=== PATIENT | male | born 1990 | race Caucasian/White ===

== ENCOUNTER 2021-10-09 08:29 | Observation (INO) ==
[2021-10-09] MEDS ORDERED: XYLOCAINE 1%/SOD BICARB 20 ML VIAL INFIL ONE (08:43)
[2021-10-09] MEDS ORDERED: MoRPHine SULFATE 10 MG/ML CARP/VIAL IM STA (08:43)
[2021-10-09] MEDS ORDERED: BUPIVACAINE 0.5 % 5 MG/1 ML MPF 30ML VIAL INFIL ONE (08:43)
[2021-10-09] MEDS ORDERED: DIPHTHERIA/TETANUS/PERTUSSIS 0.5 ML SYR/VIAL IM ONE (08:43)
--- NOTE | 2021-10-09 09:00 | Emergency Department Note ---
History of Present Illness General Chief complaint: Finger Pain Stated complaint: FINGER INJURY Time Seen by Provider: 10/09/21 08:36 Source: patient Mode of arrival: ambulatory Limitations: no limitations History of Present Illness Maximum Pain Intensity: 6 This patient is a 31-year-old male who presents to the emergency department for evaluation of an injury to his right second finger. Patient reports that he was at work this morning and smashed his finger in a pneumatic press. He reports a 6/10 pain in the finger. He reports a laceration at the site. He is unsure when his last tetanus vaccine was. He does report decreased sensation of the fingertip. Home Medications Medication Instructions Recorded Confirmed Type amoxicillin 500 mg capsule 500 mg PO TID 10/09/21 10/09/21 History ibuprofen 800 mg tablet 800 mg PO Q8H PRN 10/09/21 10/09/21 History acetaminophen 500 mg tablet 1,000 mg PO Q8H 30 Days #180 tab 10/10/21 Rx (Tylenol Extra Strength) oxycodone 5 mg tablet 5 - 10 mg PO Q4H PRN #20 tab 10/10/21 Rx Allergies Allergy/AdvReac Type Severity Reaction Status Date / Time Sulfa (Sulfonamide Allergy Unknown Unknown Verified 10/09/21 11:27 Antibiotics) Past Med/Surg History Medical History No significant past medical history Social History Smoking Status: Current every day smoker Tobacco Type: E-cigarettes / Vaping Hx Alcohol Use: Yes Hx Substance Use: No Preferred Language: Chinese Communication Ability: Effective Carbonation Tester Required: No Beliefs That Will Affect Care: None Feels Safe at Home: Yes Assistive Devices: None Review of Systems A total of 10 systems reviewed and were otherwise negative Physical Exam Vital Signs Vital Signs - 24 hr 10/09/21 15:16 10/09/21 15:25 Temperature 36.1 C L Temperature Source Temporal Artery Scan Pulse Rate [Apical] 82 71 Pulse Rhythm [Apical] Regular Regular Pulse Strength [Apical] Normal Normal Respiratory Rate 16 14 Respiratory Effort / Characteristics Non-Labored Spontaneous Non-Labored Spontaneous Respiratory Depth Normal Normal Respiratory Pattern Regular Regular Blood Pressure [Left Arm] 118/79 121/70 Blood Pressure Mean [Left Arm] 92 87 Blood Pressure Position [Left Arm] Lying Lying Pulse Oximetry 100 98 Oxygen Delivery Method Oxymask Oxymask Oxygen Flow Rate 6 6 VITALS: Vitals are noted on the nurse's note and reviewed by myself. GENERAL: This is a 31-year-old male, in no acute distress but uncomfortable appearing. SKIN: There is a stellate, macerated laceration to the palmar aspect of the right second finger over the area of the middle phalanx/DIP. No significant active bleeding. MUSCULOSKELETAL: Decreased flexion of the right second finger at the DIP. NEURO: Patient was alert and oriented to person place and time. Sensation i ntact over the distal right second finger. Procedures Free Text Procedures Digital block: The base of the right second finger was cleansed with betadine. 4 mLs of a 1:1 solution of buffered lidocaine and bupivacaine was injected into the palmar aspect of the finger at the flexor crease of the base of the finger. Patient tolerated this well. Course Administered Medications Discontinued Medications Acetaminophen (Acetaminophen 500 Mg Tab) 1,000 mg PO Q8 DEIRDRE Stop: 11/08/21 21:59 Last Admin: 10/10/21 13:07 Dose: 1,000 mg Documented by: [id number] Admin: 10/10/21 04:58 Dose: 1,000 mg Documented by: [id number] Admin: 10/10/21 00:18 Dose: Not Given Documented by: [id number] Bupivacaine HCl (Bupivacaine 0.5 % 5 Mg/1 Ml Mpf 30ml Vial) 30 ml INFIL NOW ONE Stop: 10/09/21 08:44 Last Admin: 10/09/21 09:09 Dose: Not Given Documented by: [id number] Bupivacaine HCl (Bupivacaine 0.5 % 5 Mg/1 Ml Mpf 30ml Vial) Confirm Administered Dose 30 ml .ROUTE .STK-MED ONE Stop: 10/09/21 11:17 Last Admin: 10/09/21 15:00 Dose: 6 ml Documented by: [id number] Cefazolin Sodium (Cefazolin 330 Mg/Ml 1 Gm Vial) Confirm Administered Dose 990 mg .ROUTE .STK-MED ONE Stop: 10/09/21 11:17 Last Admin: 10/09/21 11:20 Dose: Not Given Documented by: [id number] Diphtheria/Pertussis/Tetanus Vacc (Diphtheria/Tetanus/Pertussis 0.5 Ml Syr/Vial) 0.5 ml IM .ONCE ONE Stop: 10/09/21 08:44 Last Admin: 10/09/21 09:10 Dose: 0.5 ml Documented by: [id number] Docusate Sodium (Docusate Sodium 100 Mg Cap) 100 mg PO BID DEIRDRE Stop: 11/08/21 20:59 Last Admin: 10/10/21 07:11 Dose: 100 mg Documented by: [id number] Admin: 10/09/21 20:43 Dose: Not Given Documented by: [id number] Hydromorphone HCl (Hydromorphone Inj 0.5 Mg/0.5 Ml Syr) 0.5 mg IV Q4H PRN PRN Reason: Pain or Pre PT Stop: 10/23/21 16:27 Last Admin: 10/10/21 14:59 Dose: 0.5 mg Documented by: [id number] Admin: 10/10/21 11:39 Dose: 0.5 mg Documented by: [id number] Cefazolin Sodium (Ancef 2000mg) 2,000 mg in 15 mls @ 3.75 mls/min IV NOW STA Stop: 10/09/21 09:56 Last Admin: 10/09/21 10:58 Dose: 3.75 mls/min Documented by: [id number] Lactated Ringer's (Lr) 1,000 mls @ 80 mls/hr IV .[id number] DEIRDRE Stop: 11/08/21 11:29 Last Infusion: 10/09/21 12:38 Dose: 0 mls/hr Documented by: [id number] Admin: 10/09/21 12:11 Dose: 80 mls/hr Documented by: [id number] Sodium Chloride (Nss 1000ml) 1,000 mls @ 100 mls/hr IV .Q10H DEIRDRE Stop: 10/10/21 06:00 Last Infusion: 10/10/21 06:56 Dose: 0 mls/hr Documented by: [id number] Admin: 10/10/21 01:26 Dose: 100 mls/hr Documented by: [id number] Infusion: 10/10/21 01:26 Dose: 100 mls/hr Documented by: [id number] Admin: 10/09/21 16:30 Dose: 100 mls/hr Documented by: [id number] Cefazolin Sodium (Ancef 2000mg) 2,000 mg in 15 mls @ 3.75 mls/min IV Q8H DEIRDRE Stop: 10/10/21 17:59 Last Admin: 10/10/21 09:09 Dose: 3.75 mls/min Documented by: [id number] Admin: 10/10/21 01:24 Dose: 3.75 mls/min Documented by: [id number] Admin: 10/09/21 17:50 Dose: 3.75 mls/min Documented by: [id number] Ketorolac Tromethamine (Ketorolac 30 Mg/Ml Vial) 30 mg IV Q6H PRN PRN Reason: Pain Stop: 10/10/21 15:32 Last Admin: 10/10/21 07:11 Dose: 30 mg Documented by: [id number] Admin: 10/09/21 17:37 Dose: 30 mg Documented by: [id number] Lidocaine HCl (Xylocaine 1%/Sod Bicarb 20 Ml Vial) 20 ml INFIL NOW ONE Stop: 10/09/21 08:44 Last Admin: 10/09/21 09:09 Dose: Not Given Documented by: [id number] Lidocaine HCl (Lidocaine 1% Local 20 Ml Vial) Confirm Administered Dose 20 ml .ROUTE .STK-MED ONE Stop: 10/09/21 11:17 Last Admin: 10/09/21 15:00 Dose: 6 ml Documented by: [id number] Morphine Sulfate (Morphine Sulfate 10 Mg/Ml Carp/Vial) 6 mg IM NOW STA Stop: 10/09/21 08:44 Last Admin: 10/09/21 09:09 Dose: Not Given Documented by: [id number] Morphine Sulfate (Morphine Sulfate 2 Mg/Ml Carp) Confirm Administered Dose 2 mg .ROUTE .STK-MED ONE Stop: 10/09/21 09:06 Last Admin: 10/09/21 09:10 Dose: 2 mg Documented by: [id number] Morphine Sulfate (Morphine Sulfate 4 Mg/Ml 1 Ml Carp\Vial) Confirm Administered Dose 4 mg .ROUTE .STK-MED ONE Stop: 10/09/21 09:07 Last Admin: 10/09/21 09:10 Dose: 4 mg Documented by: [id number] Multivitamins (Multivitamin Tab) 1 tab PO QAM DEIRDRE Stop: 11/09/21 08:59 Last Admin: 10/10/21 07:11 Dose: 1 tab Documented by: [id number] Ondansetron HCl (Ondansetron Inj 2 Mg/Ml 2 Ml Vial) 4 mg IV ONCE PRN PRN Reason: PACU Use Only-Nausea/Vomiting Stop: 10/09/21 20:06 Last Admin: 10/09/21 15:40 Dose: 4 mg Documented by: [id number] Oxycodone HCl (Oxycodone Hcl Ir 5 Mg Tab (Immediate Release)) 5 - 10 mg PO Q4H PRN PRN Reason: Pain or Pre PT Stop: 10/23/21 16:27 Last Admin: 10/10/21 13:05 Dose: 10 mg Documented by: [id number] Admin: 10/10/21 09:09 Dose: 10 mg Documented by: [id number] Admin: 10/10/21 04:58 Dose: 10 mg Documented by: [id number] Admin: 10/09/21 20:42 Dose: 10 mg Documented by: [id number] Sennosides (Senna 8.6 Mg Tab) 17.2 mg PO HS DEIRDRE Stop: 11/08/21 20:59 Last Admin: 10/09/21 20:43 Dose: Not Given Documented by: [id number] Medical Decision Making Differential Diagnosis Differential diagnosis includes laceration, open fracture, soft tissue injury, among others. Home Medications Current Medication List: was personally reviewed by me Laboratory Data Lab Results 10/09/21 Range/Units 10:50 SARS-CoV-2, RNA, NAAT NEGATIVE (NEGATIVE) Imaging Data Attestation: I personally reviewed and interpreted this imaging study as follows: Radiologist's Impression: Finger X-Ray 10/09/21 08:43 XR finger(s) RT min 2V CLINICAL HISTORY: Right second finger injury. COMPARISON: None FINDINGS: Right second finger soft tissue swelling is noted. Note is made of an acute mildly displaced oblique fracture within the distal aspect of the middle phalanx of the right second finger with intra-articular extension. Fracture is distracted 1.6 mm. A few tiny bone fragments are present. There is apparent soft tissue gas within the right second finger. IMPRESSION: Acute oblique mildly displaced comminuted fracture of the distal aspect of the middle phalanx of the right second finger with intra-articular extension. Apparent soft tissue gas raises the possibility of an open fracture. ACT 112: Negative or not required by law. Electronically signed by: Greg Soriano M.D. 10/09/2021 9:08 AM MDM Narrative This patient is a 31-year-old male who presents to the emergency department for evaluation of an open right second finger fracture. Patient was given a tetanus booster and IV Ancef. Digital block was performed to allow better examination of the finger. Orthopedics was consulted and did elect to take the patient to the OR for further management. Impression & Plan Open fracture of finger of right hand Discharge Plan Visit Data Chief Complaint: Finger Pain Stated Complaint: FINGER INJURY ED Provider: Boni Gonzalez ED Midlevel Provider: Francie Nguyen Discharge Problem: Open fracture of finger of right hand Patient Disposition: Admitted As Inpatient Discharge Instructions Interventions: ED Discharge Assessment Last Done: 10/09/21 11:58
[2021-10-09] MEDS ORDERED: MoRPHine SULFATE 2 MG/ML CARP ONE (09:05)
[2021-10-09] MEDS ORDERED: MoRPHine SULFATE 4 MG/ML 1 ML CARP\\VIAL ONE (09:06)
--- NOTE | 2021-10-09 09:09 | XRay Report ---
XR finger(s) RT min 2V CLINICAL HISTORY: Right second finger injury. COMPARISON: None FINDINGS: Right second finger soft tissue swelling is noted. Note is made of an acute mildly displac ed oblique fracture within the distal aspect of the middle phalanx of the right second finger with in tra-articular extension. Fracture is distracted 1.6 mm. A few tiny bone fragments are present. There is apparent soft tissue gas within the right second finger. IMPRESSION: Acute oblique mildly displaced comminuted fracture of the distal aspect of the middle pha lanx of the right second finger with intra-articular extension. Apparent soft tissue gas raises the p ossibility of an open fracture. ACT 112: Negative or not required by law. Electronically signed by: Greg Soriano M.D. 10/09/2021 9:08 AM
[2021-10-09] MEDS ORDERED: ceFAZolin 2000MG 2,000 MG/15 ML SYR IV STA (09:53)
--- NOTE | 2021-10-09 10:54 | History & Physical Report ---
Date of Service October 09, 2021 Assessment & Plan (1) Open fracture of finger of right hand: Plan: Case discussed with Dr Rodriguez. Patient will require surgical intervention for wash out and irrigation with percutaneous pinning right pointer finger. 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 It happened at approximately 8:30 this morning. He was evaluated by the ED where they did x rays that showed an open, traumatic, intra- articular fracture of the 2nd digits middle phalanx. The patient denies any previous injuries or fractures to his hand or finger. ED provided him with local anesthetic using lidocaine and did copious irrigation with saline and betadine. Pt is not on any anti-coagulants. He last ate at dinner yesterday. Allergies Allergy/AdvReac Type Severity Reaction Status Date / Time Sulfa (Sulfonamide Allergy Unknown Unverified 10/09/21 09:33 Antibiotics) Home Medications Medication Instructions Recorded Confirmed Type amoxicillin 500 mg capsule 500 mg PO TID 10/09/21 10/09/21 History ibuprofen 800 mg tablet 800 mg PO Q8H PRN 10/09/21 10/09/21 History Past Med/Surg History Medical History No significant past medical history Social History Smoking Status: Current every day smoker Tobacco Type: E-cigarettes / Vaping Feels Safe at Home: Yes Review of Systems Review of Systems: Pt denies fever, chills, CP, SOB, coughing, wheezing, DIEGO Pt says he had covid 2 months ago but has since recovered and is having no symptoms Physical Exam Constitutional: Pt laying in bed AA&O x 3, NAD, Calm and cooperative during exam Eyes: PERRL, conjunctivae normal, anicteric sclerae Respiratory: normal respiratory effort, lungs clear to auscultation normal respiratory effort Cardiovascular: Rate/Rhythm: regular rate and regular rhythm Heart Sounds: normal S1 and normal S2 Musculoskeletal: Right Hand: open fracture of distal 2nd phalanx right hand. Skin warm and pink. Flexion and extension of DIP and PIP intact. Pt limited with Flexion and Extension at the PIP and MCP. Pt numb due to finger block provided by ED provider. Refer to Dr Jennifer harvey for full examination Results & Data Results & Data ([facility]) Vital Signs (Past 12 Hours) Vital Signs Temp Pulse Resp BP Pulse Ox 10/09/21 08:32 36.6 C 78 20 156/103 H 97 Diagnostic Findings XR finger(s) RT min 2V CLINICAL HISTORY: Right second finger injury. COMPARISON: None FINDINGS: Right second finger soft tissue swelling is noted. Note is made of an acute mildly displaced oblique fracture within the distal aspect of the middle phalanx of the right second finger with intra-articular extension. Fracture is distracted 1.6 mm. A few tiny bone fragments are present. There is apparent soft tissue gas within the right second finger. IMPRESSION: Acute oblique mildly displaced comminuted fracture of the distal aspect of the middle phalanx of the right second finger with intra-articular extension. Apparent soft tissue gas raises the possibility of an open fracture.
--- NOTE | 2021-10-09 11:02 | Orthopedic Consultation ---
Date of Consultation October 09, 2021 Assessment & Plan (1) Open fracture of finger of right hand: Patient seen in conjunction with Sofia Sparrow. For further details refer to her dictation. She and I saw and evaluated together. I am in agreement the plan. Vincenzo is otherwise healthy. He injured his right index finger at about 8:30 AM and a press at work. There is no prior history of hand injuries. The examination reveals a wound on the radial side of the digit. It begins just lateral to the midline dorsally and extends around the radial side of the digit to about the mid axis of the finger. There is a large flap distally. The laceration with evulsion is about 3 perhaps 3-1/2 cm in length. There may be some volar tissue missing. Opening this up reveals a channel that goes directly down to the distal interphalangeal joint. The flexor tendon appears visible and looks to be intact. He has intact IP joint extension without lag and he can actively flex the DIP joint. He has difficulty flexing at the PIP joint but can do so in all other fingers including the left index finger. There is no tenderness over the proximal middle phalanx. He has been anesthetized so I cannot assess his sensation but he does have capillary refill intact less than 2 seconds at the tip of the finger. Radiographs show a fracture involving the ulnar aspect of the distal portion of the middle phalanx going into the joint with displacement. He has received tetanus. He is getting Ancef and a Covid test. He has a open fracture by Gustilo Alex classification based upon size grade 2. He will need intravenous antibiotics which she is receiving. I have recommended irrigation debridement closure duction percutaneous pinning and he agrees to proceed. Talked about treatment options risks benefits rehab and recovery. He will be admitted to the hospital overnight for intravenous antibiotics. No issues with bleeding blood clots metal allergy or MRSA. Informed consent was obtained. History of Present Illness Allergies Allergy/AdvReac Type Severity Reaction Status Date / Time Sulfa (Sulfonamide Allergy Unknown Unverified 10/09/21 09:33 Antibiotics) Home Medications Medication Instructions Recorded Confirmed Type amoxicillin 500 mg capsule 500 mg PO TID 10/09/21 10/09/21 History ibuprofen 800 mg tablet 800 mg PO Q8H PRN 10/09/21 10/09/21 History Patient History Medical History No significant past medical history Social History Smoking Status: Current every day smoker Tobacco Type: E-cigarettes / Vaping Feels Safe at Home: Yes Results & Data ([facility]) Vital Signs (Past 12 Hours) Vital Signs Temp Pulse Resp BP Pulse Ox 10/09/21 08:32 36.6 C 78 20 156/103 H 97
[2021-10-09] MEDS ORDERED: ceFAZolin 330 MG/ML 1 GM VIAL ONE (11:16)
[2021-10-09] MEDS: LIDOCAINE 1% LOCAL 20 ML VIAL ONE ×2 (11:20→15:00)
[2021-10-09] MEDS: BUPIVACAINE 0.5 % 5 MG/1 ML MPF 30ML VIAL ONE ×2 (11:20→15:00)
[2021-10-09] MEDS ORDERED: LACTATED RINGER'S 1,000 ML IV SCH (11:30)
[2021-10-09] MEDS ORDERED: ONDANSETRON INJ 2 MG/ML 2 ML VIAL IV PRN ×2 (12:06→16:28)
[2021-10-09] MEDS ORDERED: fentaNYL citrate 100 MCG/2 ML VIAL IV PRN (12:06)
[2021-10-09] MEDS ORDERED: HYDROmorphone INJ 2 MG/ML SYR/VIAL IV PRN (12:06)
[2021-10-09] MEDS ORDERED: ATROPINE SULFATE 0.1 MG/ML 10ML SYR IV PRN (12:06)
[2021-10-09] MEDS ORDERED: ePHEDrine sulfate 50 MG/ML AMP IV PRN (12:06)
--- NOTE | 2021-10-09 12:07 | Anesthesiology Consultation ---
Date of Service October 09, 2021 Assessment & Plan (1) Encounter for pre-operative examination: Chart Review Chart Review: Acceptable Risk for Surgery and Patient NOT seen in Pre Admission Testing Consults Requested none History Surgery Operation Date: 10/09/21 07:00 Proposed Procedures p Incision and Drainage Right Index Finger - Burke Rodriguez MD s Pinning Open Finger Fracture Right Index - Burke Rodriguez MD Height/Weight Height: 5 ft 9 in Weight: 91.6 kg Allergies Allergy/AdvReac Type Severity Reaction Status Date / Time Sulfa (Sulfonamide Allergy Unknown Unknown Verified 10/09/21 11:27 Antibiotics) Medications Home Medications Medication Instructions Recorded Confirmed Last Taken amoxicillin 500 mg capsule 500 mg PO TID 10/09/21 10/09/21 10/09/21 ibuprofen 800 mg tablet 800 mg PO Q8H PRN 10/09/21 10/09/21 10/09/21 Active Medications Generic Name Dose Route Start Last Admin Trade Name Freq PRN Reason Stop Dose Admin Lactated Ringer's 1,000 mls @ 80 mls/hr 10/09/21 11:30 10/09/21 12:11 Lr IV 11/08/21 11:29 80 mls/hr .[id number] DEIRDRE Administration Past Medical History Medical History No significant past medical history Exercise / Class Metabolic Activity 1 > 8 Run/Swim/Ski/Tennis Past Anesthesia History No Hx of Anesthesia Complications and No Family Hx of Anesthesia Complications History of PONV No Hx of PONV and No Hx of Motion Sickness Social History Smoking Status: Current every day smoker Physical Exam Vital Signs Last Vital Signs Temp 36.8 C 10/09/21 12:02 Pulse 84 10/09/21 12:02 Resp 20 10/09/21 12:02 BP 155/98 H 10/09/21 12:02 Pulse Ox 98 10/09/21 12:02
[2021-10-09] MEDS ORDERED: PROPOFOL IV EMULSION 10 MG/ML 20 ML VIAL IV ONE (12:40)
[2021-10-09] MEDS ORDERED: DEXAMETHASONE SOD INJ 4 MG/ML VIAL ONE (13:04)
[2021-10-09] MEDS ORDERED: ePHEDrine sulfate 50 MG/ML AMP ONE (13:04)
[2021-10-09] MEDS ORDERED: ONDANSETRON INJ 2 MG/ML 2 ML VIAL ONE (13:04)
--- NOTE | 2021-10-09 15:15 | Operative Report ---
Post Operative Report Pre & Post Diagnosis Operation Date: 10/09/21 07:00 Pre-Op Diagnosis: Grade 2 open right index finger middle phalanx fracture with possible flexor superficialis injury Post-Op Diagnosis: Intra-articular fracture of the distal aspect of the middle phalanx of the right index finger with a 3 to 4 cm crushing avulsion laceration intact tendons and probable unlikely open joint or open fracture. I identified the patient and participated in the time-out.: Yes Procedure Operation Date: 10/09/21 07:00 Actual Procedures p Incision and Drainage Right Index Finger(Right) - Burke Rodriguez MD s Pinning Open Finger Fracture Right Index(Right) - Burke Rodriguez MD Surgeon Burke Rodriguez MD Consulting Senior Practice Director Chaz Carbone physicians cosmetic sales assistant no resident or fellow available Estimated Blood Loss 3 Findings Consistent with Post-Op Diagnosis Specimens None Anesthesia Type General Regional Complications none Disposition Accompanied Patient To Recovery: No Disposition: Recovery Room Indications Vincenzo is 31. He had his right index finger crushed in an industrial accident. He has a large wound on the distal portion of the right index finger and an intra-articular fracture involving the ulnar aspect of the distal portion of the middle phalanx which goes into the joint. He has difficulty with superficialis function as well. He is taken to the operating room for exploration irrigation debridement and fracture repair as well as wound closure. Description of Procedure Informed consent obtained. Patient identified. He identified the operative site as the right index finger. I marked with my initials. A preoperative surgical timeout was performed. A preop dose of intravenous antibiotics was given. Tetanus was also given. He was taken to the operating room positioned supine on the operating table and the anesthetic was administered. At the conclusion the operation local anesthetic was administered for a digital block. The hand was prescrubbed with Betadine the fingernails were cleaned and then was prepped with Betadine in the usual sterile fashion as well as draped. There is a slightly more extended posture to the finger likely related to swelling but the tenodesis effect was intact with flexion and extension. There was a laceration which began dorsal radial just shy of the midline and proceeded proximally for about 1 to 1-1/2 cm. It then coursed more distal and palmar across the region of the DIP joint over to the mid lateral line on the ulnar side of the digit. There was loss of epidermis. There may have been some loss of the dermis. The limb was exsanguinated the Esmarch tourniquet inflated 225 mmHg. DVT prophylaxis with foot pumps. Postoperatively early mobility. The flexor tendon that is the profundus tendon was readily visualized within the wound. This was intact although the jimmy at the level of the DIP joint was at least partially disrupted. The neurovascular pedicles appear to be intact medially and laterally. They were dissected out and preserved. I extended the incision proximally along the mid lateral line on the radial side. I identified the neurovascular bundles and retracted them with the dorsal skin flap. This enabled exposure of the tendon sheath. The tendon sheath itself looked fine without any hemorrhage. Because of the patient's difficulty with FDS function I went ahead made an oblique incision over the metacarpal head of the index finger and identified the FDS and FDP and through differential pulling was able to show that both the FDP and FDS were completely intact. This wound was then closed at the end of the case after irrigating it achieving hemostasis and closing with some 4-0 nylon horizontal mattress sutures. Back at the level of the finger distally the wound was copiously irrigated with 500 cc of sterile normal saline. About 100 cc were introduced into the flexor tendon sheath and irrigated from distal to proximal while the proximal wound was open. The remainder of it was irrigated for the distal wound and in particular the fracture. The tendon sheath was disrupted distally at the level of the DIP joint. The DIP joint was identified fluoroscopically. I then dissected underneath the tendon. The volar plate remained intact. I technically do not think that this fracture communicated with the outside however given the nature of the wound I elected to retract the tendon radialward and then I identified the fracture fluoroscopically and made a longitudinal incision at this point volarly to get into the joint and identify the fracture. The majority of the irrigation was done here. This area appeared to be clean. I then went ahead and tried to reduce the fracture. Fracture is small and difficult to reduce. We tried longitudinal traction massaging radial and ulnar deviation. Eventually I was able to get a dental pick on the fracture site with direct visualization and I reduce it well. Introducing the pin from ulnar to radial using fluoroscopic guidance were able to achieve good fixation. The fragment was only big enough to get one wire and and the fragment was difficult to control. The pin was also used to try to joystick the fragment into good position along with the dental pick. I think there is a little bit of residual rotation and 1 mm of articular step-off. We could see this clinically. I think the possibility of trying to improve this was limited. Given the size of the fragments and the smallness of the bones we were dealing with I did not think another pin could be inserted and I think multiple attempts of fixation would damage the fragment. The joint was stable. The pin was in the bone both AP and lateral. It was backed off to be bicortical under fluoroscopic guidance the pin was then cut and a Jurgan ball applied. The tourniquet was let down meticulous hemostasis was performed and irrigation was again done. I then closed the wound completely with interrupted simple sutures of 4-0 nylon. Finger was cleaned wet and dry sponges the anesthetic injection was given and the proximal incision was closed. Xeroform 2 x 2's soft wrap and a finger splint with the finger in slight flexion was applied. Gold Reclaimer fluoroscopic images were obtained. Patient taken recovery room stable condition there were no specimens complications counts were correct blood loss was 3 cc. At the conclusion the operation spoke patient's significant other informed of my findings. Plan is to admit him to the hospital for 24 hours of intravenous antibiotics to protect against infection related to potential open fracture and open joint. There was no gross contamination. He would then be discharged and be kept immobilized in the splint. The pin will stay in for 3 to 4weeks. I think the fracture site will remodel well. There could be stiffness of the joint. I attest to the content of the Intraoperative Record and any orders documented therein. Any exceptions are noted below.
--- NOTE | 2021-10-09 15:17 | Fluoroscopy Report ---
FL finger RT 2V CLINICAL HISTORY: RT ORIF INDEX FINGER FX COMPARISON STUDY: Right second finger radiographs performed earlier today. FLUOROSCOPY TIME: 49 seconds. FLUOROSCOPIC IMAGES: 3 FINDINGS: Fluoroscopy was provided during open reduction and pinning of the fracture of the middle ph alanx of the right second finger. IMPRESSION: Fluoroscopy provided during pinning of the fracture of the middle phalanx of the right s econd finger. ACT 112: Negative or not required by law. Electronically signed by: Greg Soriano M.D. 10/09/2021 3:15 PM
--- NOTE | 2021-10-09 15:33 | Anesthesiology Progress Note ---
Date of Service October 09, 2021 Anesthesia Post Procedure Vital Signs Vital Signs: Temp Pulse Pulse Resp BP BP Pulse Ox 10/09/21 12:02 36.8 C 84 20 155/98 H 98 10/09/21 11:56 36.9 C 67 18 134/79 100 10/09/21 08:32 36.6 C 78 20 156/103 H 97 Pain Intensity Right Finger: Pain Intensity: 3 Transfer of Care Handoff Completed per policy Notes Mental Status: alert / awake / arousable and participated in evaluation Patient Amnestic to Procedure: Yes Nausea / Vomiting: adequately controlled Pain: adequately controlled Airway Patency, RR, SpO2: stable & adequate BP & HR: stable & adequate Hydration State: stable & adequate Anesthetic Complications: no major complications apparent and Pt Satisfied with anesthetic care
--- NOTE | 2021-10-09 15:37 | Operative Report ---
Post Operative Report Pre & Post Diagnosis Operation Date: 10/09/21 07:00 Pre-Op Diagnosis: Finger Injury Post-Op Diagnosis: Finger Injury I identified the patient and participated in the time-out.: Yes Procedure Operation Date: 10/09/21 07:00 Actual Procedures p Incision and Drainage Right Index Finger(Right) - Burke Rodriguez MD s Pinning Open Finger Fracture Right Index(Right) - Burke Rodriguez MD Surgeon LILLIAM Rodriguez MD Wool Fleece Grader Chaz Carbone physician drug safety assistant no resident or fellow available Estimated Blood Loss 3 Findings Consistent with Post-Op Diagnosis see operative report Specimens none Drains none Complications none Disposition Accompanied Patient To Recovery: Yes Indications This 31-year-old male presented through the ED with complaints of a right index finger crush injury. Preoperative imaging was obtained. He elected to proceed with surgical invention after being educated about potential risks and outcomes. Description of Procedure Patient was taken to the operating room where he was given general anesthesia. He was prepped and draped in the usual sterile fashion. Please see Dr. Rodriguez's operative report for specifics of the procedure. I was present for the entire case from initial patient positioning through final closure. Assistance was provided in tissue retraction, hemostasis, fracture reduction, hardware placement, final wound closure, and postoperative splinting. Patient was taken to the recovery room in satisfactory condition. I attest to the content of the Intraoperative Record and any orders documented therein. Any exceptions are noted below.
[2021-10-09] MEDS ORDERED: METOCLOPRAMIDE HCL INJ 5 MG/ML 2 ML VIAL IV PRN (16:28)
[2021-10-09] MEDS ORDERED: diphenhydrAMINE 50 MG/ML VIAL IV PRN (16:28)
[2021-10-09] MEDS ORDERED: TAMSULOSIN HCL 0.4 MG CAP PO PRN (16:28)
[2021-10-09] MEDS ORDERED: MAGNESIUM HYDROXIDE SUSP 30 ML UDC PO PRN (16:28)
[2021-10-09] MEDS ORDERED: bisacodyL 10 MG SUPP PR PRN (16:28)
[2021-10-09] MEDS ORDERED: ALUMINUM/MAGNESIUM SUSP 30 ML UDC PO PRN (16:28)
[2021-10-09] MEDS ORDERED: NALOXONE HCL 0.4 MG/1 ML VIAL/CARP IV PRN (16:28)
[2021-10-09] MEDS: SODIUM CHLORIDE 0.9% 1000ML 1,000 ML IV SCH (16:30)
[2021-10-09] MEDS: KETOROLAC 30 MG/ML VIAL IV PRN (17:37)
[2021-10-09] MEDS: ceFAZolin 2000MG 2,000 MG/15 ML SYR IV SCH (17:50)
--- NOTE | 2021-10-09 19:57 | Progress Notes ---
DATE OF SERVICE: 10/09/2021. The patient is resting comfortably in bed. He is afebrile. Vital signs are stable. We talked about the results of surgery. His fingers are still numb. He feels pins and needles. He has numbness at the tip, but good capillary refill. The splint is clean, dry and intact. He was grateful for the h elp. I discussed with him the findings related to surgery in terms of the tendons, the wound, fractu re and joint. Plan for IV antibiotics x24 hours. We will reassess tomorrow and see if he is appropriate for discha rge. At this time, he is stable postoperatively. He does note some discomfort in the antecubital fo ssa. There is full movement with no swelling. This might be related to positioning or tourniquet. We will monitor. Job ID: [id number]
[2021-10-09] MEDS: oxyCODONE HCL IR 5 MG TAB (IMMEDIATE RELEASE) PO PRN (20:42)
[2021-10-09] MEDS: DOCUSATE SODIUM 100 MG CAP PO SCH (20:43)
[2021-10-09] MEDS ORDERED: SENNA 8.6 MG TAB PO SCH (21:00)
[2021-10-10] MEDS: ACETAMINOPHEN 500 MG TAB PO SCH ×3 (00:18→13:07)
[2021-10-10] MEDS: ceFAZolin 2000MG 2,000 MG/15 ML SYR IV SCH ×2 (01:24→09:09)
[2021-10-10] MEDS: SODIUM CHLORIDE 0.9% 1000ML 1,000 ML IV SCH (01:26)
[2021-10-10] MEDS: oxyCODONE HCL IR 5 MG TAB (IMMEDIATE RELEASE) PO PRN ×3 (04:58→13:05)
[2021-10-10] MEDS: KETOROLAC 30 MG/ML VIAL IV PRN (07:11)
[2021-10-10] MEDS: DOCUSATE SODIUM 100 MG CAP PO SCH (07:11)
[2021-10-10] MEDS ORDERED: MULTIVITAMIN TAB PO SCH (09:00)
[2021-10-10] MEDS: HYDROmorphone INJ 0.5 MG/0.5 ML SYR IV PRN ×2 (11:39→14:59)
--- NOTE | 2021-10-10 14:47 | Discharge Summary ---
Date of Service October 10, 2021 Admission HPI Per Admitting Provider Pt is a 31 year old healthy male, right-hand dominate, who presented today after sustaining and injury at work. 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 It happened at approximately 8:30 this morning. He was evaluated by the ED where they did x rays that showed an open, traumatic, intra- articular fracture of the 2nd digits middle phalanx. The patient denies any previous injuries or fractures to his hand or finger. ED provided him with local anesthetic using lidocaine and did copious irrigation with saline and betadine. Pt is not on any anti-coagulants. He last ate at dinner yesterday. Discharge Data Procedures Performed Operation Date: 10/09/21 07:00 Actual Procedures p Incision and Drainage Right Index Finger(Right) - Burke Rodriguez MD s Pinning Open Finger Fracture Right Index(Right) - Burke Rodriguez MD Hospital Course (1) Open fracture of finger of right hand: Patient presented to the emergency room on October 09, 2021 with an acute injury to his right index finger while at work. He had x-rays and was found to have a middle phalanx open fracture. An orthopedic consult was placed and Dr. Rodriguez saw and evaluated the patient. It was determined that he would benefit from immediate irrigation, debridement and pinning of the finger fracture. Surgery was performed later that afternoon. He tolerated the procedure well without any intraoperative complications. He was given IV Ancef in the emergency room which was continued for 24 hours after his surgery. Intraoperative fluoroscopic guided x-rays showed good reduction of the fracture with a percutaneous pin. Postoperatively, he was allowed out of bed, weight-bear as tolerated. He was given a regular diet, which he tolerated during his inpatient stay. He had a splint and postoperative dressings on that finger. He was encouraged to ice and elevate. He was given Tylenol, oxycodone and IV Dilaudid for postoperative pain control. His vitals remained stable during his inpatient stay. On postoperative day 1 his dressings were changed and he had paresthesias of his right index finger. Sutures are intact. Pin was in place. Mild bloody drainage on the dressings. New sterile dressings were applied to the right index finger. Encouraged finger range of motion as he was able to do. Keep the splint and dressings on. Discharge instructions viewed. Did not develop any postoperative fevers, chills, nausea, vomiting, diarrhea or constipation. He was discharged to his home on October 10, 2021 in stable condition. Follow up appointments have been scheduled.
--- NOTE | 2021-10-10 16:19 | Progress Notes ---
FOLLOWUP EVALUATION DATE OF SERVICE: 10/10/2021 Reports throbbing pain in the finger. Numbness as well. He is afebrile. His vital signs are stable. There are no relevant labs. Surgical findings were dis cussed. Capillary refill is intact, less than 2 seconds in the tip of the finger, which is warm and pink. Because of the throbbing, we went ahead and removed the dressing. Minor maceration. Skin edges well approximated. Moderate swelling. Slight relief with changing the bandage. He reports numbness ess entially going from the palmar incision circumferentially around the finger out to the tip. He does not feel anything at the tip. The remainder of the finger, both on the palmar and dorsal side demons trates diminished sensation as does the radial aspect of the long finger. He can slightly flex the f catherine. There is some dried blood around the laceration, possibly some minor skin necrosis. Pin inta ct. New dressing is applied with a new splint. Xeroform, 4 x 4s, Liberty, and Coban with the splint. Doing well. He has received 3 doses of postoperative IV antibiotics. He can resume the antibiotics for his tooth. Elevate, ice. Keep clean and dry. Follow up on Saturday with Romy for a wound kiko ck. Anti-inflammatory Tylenol pain medication, stool softener. If there are problems with pain, fev er, swelling, numbness or any other issues, please return for evaluation. I think part of the numbne ss might be due to a nerve injury at the level of the trauma. Otherwise, likely due to swelling. We will monitor. Circulation intact. He is not able to work, but might be able to do light duty in e near future. Regular work maybe 8 to 12 weeks away. We talked about the risks of infection, wound care, elevation. He will be educated on pain care on Saturday. Likely going to be some stiffness and he will need therapy. He is suitable for discharge. Job ID: [id number]
== END 2021-10-10 15:11 | disposition home or self-care (01) ==
LOC: ED 08:29 → 3E 11:49 → ASU 11:49